=== PATIENT | female | born 1950 | race Caucasian/White ===

== ENCOUNTER → 2017-05-24 | Outpatient (CLI) | payer MEDICARE, BC ==
--- NOTE | 2017-05-24 17:00 | RADIOLOGY REPORT PS360 ---
[id number] VIEWS HISTORY: ACUTE PAIN OF LEFT SHOULDER ORDERING PHYSICIAN: Martina MCCRACKEN PATIENT AGE: 66 years COMPARISON: None FINDINGS: There are mild osteoarthritic changes of the glenohumeral joint. No fracture or dislocation. No lytic or blastic change. The AC joint has an unremarkable appearance. 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
== END ==
LOC: RAD 16:30
DX: M25.512 Pain in left shoulder (principal)